=== PATIENT | male | born 1995 | race Caucasian/White ===

== ENCOUNTER 2024-11-17 16:27 | Emergency (ER) | payer MEDICAID ==
[~2024-11-17] VITALS: Ht 160 cm; Wt 81.0 kg
[2024-11-17 16:34] VITALS: O2SAT 100
[2024-11-17] MEDS: ONDANSETRON HCL 4MG/2ML INJ IV STA (17:30)
[2024-11-17] MEDS: MORPHINE SULFATE 4 MG/ML INJ (FOR IV/IM USE) IV ONE (17:30)
[2024-11-17 17:43] LABS: HEMATOCRIT. 48.6 % (42.0-52.0); HEMOGLOBIN. 16.4 g/dL (14.0-18.0); MEAN CORPUSCULAR HEMOGLOBIN 27.9 pg (28.0-32.0); MEAN CORPUSCULAR HGB CONC 33.7 g/dL (31.0-37.0); MEAN CORPUSCULAR VOLUME 82.8 fL (80.0-94.0); MEAN PLATELET VOLUME 8.4 fl (7.4-10.4); PLATELET 364 x1000/uL (130-400); RED BLOOD CELL COUNT 5.87 mill/uL (4.7-6.1); RED CELL DISTRIBUTION WIDTH 12.9 % (11.6-14.6); WHITE BLOOD COUNT 14.6 x1000/uL (4.5-11.0)
[2024-11-17 17:44] LABS: DIFFERENTIAL COMMENT 1
[2024-11-17 17:48] LABS: CHLORIDE 101 mEq/L (98-107); POTASSIUM 3.5 mEq/L (3.5-5.1); SODIUM 137 mEq/L (136-145)
[2024-11-17 17:49] LABS: CALCIUM 10.4 mg/dL (8.7-10.4); CARBON DIOXIDE 19 mEq/L (21-32)
[2024-11-17 17:54] LABS: CREATININE 0.9 mg/dL (0.6-1.3); GLUCOSE 117 mg/dL (70-105); UREA NITROGEN BLOOD 14 mg/dL (9-23)
[2024-11-17 17:56] LABS: ALANINE AMINOTRANSFERASE 38 IU/L (10-49); ALBUMIN 5.7 g/dL (3.2-4.8); ASPARTATE AMINOTRANSFERASE 22 IU/L (<34); BILIRUBIN DIRECT 0.4 mg/dL (<=3.0); BILIRUBIN TOTAL 1.4 mg/dL (0.1-1.0); PROTEIN TOTAL 9.3 g/dL (6.0-8.3)
[2024-11-17 18:07] LABS: PLATELET ESTIMATE NORMAL
[2024-11-17 18:25] LABS: INR 1.1; PROTHROMBIN TIME 11.5 sec (9.6-11.0)
[2024-11-17 18:30] VITALS: BP 116/78; PULSE 90; RESP 16; TEMP 36.8; O2SAT 100
[2024-11-17 18:41] LABS: CLARITY URINE CLEAR (CLEAR); COLOR URINE YELLOW (YELLOW); GLUCOSE URINE NEGATIVE (NEGATIVE); KETONES URINE 3+ (NEGATIVE); LEUKOCYTE ESTERASE URINE NEGATIVE (NEGATIVE); NITRITE URINE NEGATIVE (NEGATIVE); OCCULT BLOOD URINE TRACE (NEGATIVE); PH URINE >=9.0 (4.5-8.0); PROTEIN URINE 2+ (NEGATIVE)
[2024-11-17 18:49] LABS: WBC URINE 0-2 /hpf (0-2)
[2024-11-17 18:50] LABS: BACTERIA URINE TRACE; SQUAMOUS EPITHELIAL CELL URINE 1+ /lpf (RARE/1+)
[2024-11-17] MEDS ORDERED: FAMO20TA8 MT (19:18)
[2024-11-17] MEDS ORDERED: HYDR-4001 MT (19:18)
[2024-11-17] MEDS: FAMOTIDINE 20MG TABLET PO ONE (19:19)
== END 2024-11-17 20:02 | disposition home or self-care (01) ==
LOC: ER 16:27
DX: R10.13 Epigastric pain (principal); N20.0 Calculus of kidney; Z88.0 Allergy status to penicillin
CPT/HCPCS: 99285; 74176; 96374; 96375; 80076; 80048; 81003; 83690; 85025; 85610; 36415; J2405; J2270